=== PATIENT | female | born 1980 | race Caucasian/White ===

== ENCOUNTER 2022-01-10 15:04 | Observation (INO) | payer BC, OTHER ==
[~2022-01-10] VITALS: Ht 154.9 cm; Wt 68.0 kg
[~2022-01-10 15:04] MED LIST: CIPRO500 MG PO; FLAGYL 250 MG250 MG PO
[2022-01-10 16:03] LABS: HEMOGLOBIN 12.6 gm/dl (12.3-15.3); RED BLOOD COUNT 4.22 M/UL (4.00-5.10); WHITE BLOOD COUNT 5.2 K/UL (4.5-11.0)
[2022-01-10 16:28] LABS: BUN/CREATININE RATIO 8 (0-10)
[2022-01-11] MEDS ORDERED: CYMBALTA20 MG PO (00:58)
[2022-01-11] MEDS ORDERED: OMEPRAZOLE40 MG PO (00:59)
[2022-01-11] MEDS ORDERED: BUTALB-ACETAMI1 EACH PO (01:00)
[2022-01-11] MEDS ORDERED: XYZAL5 MG PO (01:00)
[2022-01-11] MEDS ORDERED: TOPAMAX100 MG PO (01:00)
[2022-01-11] MEDS ORDERED: METHOCARBAMOL500 MG PO (01:00)
[2022-01-11] MEDS ORDERED: PHENERGAN 25 MG25 M1 PO (01:01)
[2022-01-11] MEDS ORDERED: ONDANSETRON HCL8 MG PO ×2 (01:01→14:49)
[2022-01-11] MEDS ORDERED: HYDROCODON-ACE1 EAC2 PO (10:26)
[2022-01-11] MEDS ORDERED: COLACE100 MG PO (10:26)
--- NOTE | 2022-01-11 12:13 | NUR ---
spoken with dr. cuadra patient condition as follows: complaints of pain, nauseaous, pulse ox and medications given at PACU. received order and stated he will come and see patient when he is done on his surgery
[2022-01-11] MEDS ORDERED: PROMETHAZINE HC25 M1 PO (14:48)
[2022-01-11] MEDS ORDERED: MYCOSTATIN100000 UTS PO (14:50)
[2022-01-11] MEDS ORDERED: SUCRALFATE1 GM PO (14:50)
[2022-01-11] MEDS ORDERED: FEXOFENADINE H180 MG PO (14:50)
[2022-01-11] MEDS ORDERED: RIZATRIPTAN10 MG PO (14:51)
[2022-01-11] MEDS ORDERED: CYCLOBENZAPRINE10 MG PO (14:51)
--- NOTE | 2022-01-12 15:32 | NUR ---
patient returned from bone scan and mri
== END 2022-01-12 15:46 | disposition home or self-care (01) ==
LOC: ER1 15:04 → M/S 23:23 → CDU 23:23 → M/S 01-11 00:46
PROVIDERS: Physician Assistant Medical; ADMIT Surgery
DX: K81.2 Acute cholecystitis with chronic cholecystitis (principal); K21.9 Gastro-esophageal reflux disease without esophagitis; F17.290 Nicotine dependence, other tobacco product, uncomplicated; F32.A Depression, unspecified; F41.9 Anxiety disorder, unspecified; Z88.2 Allergy status to sulfonamides; Z79.899 Other long term (current) drug therapy; Z20.822 Contact with and (suspected) exposure to COVID-19
CPT/HCPCS: 71045; 80053; 81001; 82550; 82553; 84484; 85025; 85379; 87086; 93005; 96365; 96372; 96375; 96376; 99285; C9113; G0378; J0690; J1100; J1170; J1885; J2001; J2250; J2270; J2405; J2543; J2550; J2704; J2710; J3010; J3480; J7030; J7120; Q9967; U0002

== ENCOUNTER → 2022-02-13 | Day surgery (SDC) | payer BC, OTHER ==
[~2022-02-13] MED LIST changes: +ABILIFY5 MG PO; +ALLEGRA ALLERGY60 MG PO; +BUTALB-ACETAMI1 EACH PO; +COLACE100 MG PO; +CYCLOBENZAPRINE10 MG PO; +CYMBALTA20 MG PO; +FERROUS SULFAT325 MG PO; +FEXOFENADINE H180 MG PO; +HYDROCODON-ACE1 EAC2 PO; +METHOCARBAMOL500 MG PO; +MYCOSTATIN100000 UTS PO; +OMEGA 3 1,0001 EACH PO; +OMEPRAZOLE40 MG PO; +ONDANSETRON HCL8 MG PO; +PHENERGAN 25 MG25 M1 PO; +PRILOSEC OTC20 MG PO; +PROMETHAZINE HC25 M1 PO; +RIZATRIPTAN10 MG PO; +SUCRALFATE1 GM PO; +TOPAMAX100 MG PO; +XYZAL5 MG PO
== END | disposition home or self-care (01) ==
LOC: OR 06:10
DX: R13.10 Dysphagia, unspecified (principal); K31.9 Disease of stomach and duodenum, unspecified; K29.70 Gastritis, unspecified, without bleeding; K21.9 Gastro-esophageal reflux disease without esophagitis; Z90.49 Acquired absence of other specified parts of digestive tract; Z88.2 Allergy status to sulfonamides; Z79.899 Other long term (current) drug therapy
CPT/HCPCS: J2704

== ENCOUNTER 2022-03-23 11:56 | Emergency (ER) | payer BC, OTHER ==
[2022-03-23 14:18] LABS: HEMOGLOBIN 13.1 gm/dl (12.3-15.3); RED BLOOD COUNT 4.43 M/UL (4.00-5.10); WHITE BLOOD COUNT 7.2 K/UL (4.5-11.0)
[2022-03-23 14:37] LABS: BUN/CREATININE RATIO 20 (0-10)
[2022-03-23] MEDS ORDERED: MEDROL DOSEPAK 24 MG PO (15:14)
[2022-03-23] MEDS ORDERED: OMNICEF 300 MG300 MG PO (15:14)
== END 2022-03-23 16:15 | disposition home or self-care (01) ==
LOC: ER1 11:56
PROVIDERS: Physician Assistant
DX: M54.42 Lumbago with sciatica, left side (principal); N39.0 Urinary tract infection, site not specified; F17.290 Nicotine dependence, other tobacco product, uncomplicated; Z90.710 Acquired absence of both cervix and uterus; Z79.899 Other long term (current) drug therapy; Z88.2 Allergy status to sulfonamides; Z88.8 Allergy status to other drugs, medicaments and biological substances
CPT/HCPCS: 80053; 81001; 84703; 85025; 87086; 96372; 99284; J1100; J1885

== ENCOUNTER → 2022-04-25 | Outpatient (CLI) | payer BC, OTHER ==
[~2022-04-25] MED LIST changes: +MEDROL DOSEPAK 24 MG PO; +OMNICEF 300 MG300 MG PO
== END ==
LOC: EMI 10:08
DX: G44.89 Other headache syndrome (principal); G43.909 Migraine, unspecified, not intractable, without status migrainosus
CPT/HCPCS: 70551